=== PATIENT | male | born 1950 | race Caucasian/White ===

== ENCOUNTER 2024-03-13 18:58 | Emergency (ER) | payer MEDICARE, SELFPAY ==
[2024-03-13 19:00] VITALS: BP 194/94
[2024-03-13 19:23] VITALS: BMI 26.8
--- NOTE | 2024-03-13 20:36 | ED.GENMED ---
History of Present Illness
General
Chief Complaint: Musculo-Skeletal Complaint
Source: patient
Exam Limitations: none
Time Seen by Provider: 03/13/24 19:26
Nursing documentation reviewed up to this point in time: agreed with
History of Present Illness
History of Present Illness:
73-year-old male presents Emergency Department complaining of 2 days of neck stiffness and soreness. He took Advil and could not get it to go away. He also complains of a headache.
Past History
Past History
ED Past Medical History: None
ED Past Surgical History: Orthopedic (Chronic left knee intermittent pain and swelling.)
Social History
Tobacco: Non-smoker
Living: with family
Employment: Employed
Review of Systems
Review of Systems
Allergies reviewed?: Yes
All Other Systems: Not applicable
Constitutional: Reports no symptoms
EENT: Reports no symptoms
Respiratory: Reports no symptoms
Cardiac: Reports no symptoms
ABD/GI: Reports no symptoms
: Reports no symptoms
Musculoskeletal: Reports neck pain
Skin: Reports no symptoms
Endocrine: Reports no symptoms
Hematologic/Lymphatic: Reports no symptoms
Psychiatric: Reports no symptoms
Phy Exam
Physical Exam
Physical Exam:
Physical Exam
General: no apparent distress, not acutely ill
Neck: supple. no meningeal signs. normal posterior pharynx, mild posterior soft tissue tenderness
Heart: s1/s2 regular rate and rhythm, no murmur. equal radial
pulses.
HEENT: Pupils equal round reactive to light, EOMI
Lungs: no acute respiratory distress. clear bilaterally
Abdomen: normal bowel sounds. not tender. no CVAT
Neuro: alert and oriented. no focal neurological deficits cranial nerves II through XII intact
Skin: no rash
Psychiatric: well kept. interactive and cooperative
Extremities: no edema. no calf tenderness. negative homans. good distal pulses
Course
Orders/Labs/Results
Orders:
Orders
03/13/24 19:41
CT Cervical Spine W/o Iv Contr Urgent
Comment:
Reason For Exam: lower cervical pain, no know trauma
CT Head W/o Iv Contrast Urgent
Comment:
Reason For Exam: posterior headache
03/13/24 20:35
Acetaminophen [Tylenol] 1,000 mg PO NOW STA
Vital Signs
Initial and Last Documented VS:
Initial Vital Signs
Temp Pulse Resp BP Pulse Ox
97.8 F 62 20 194/94 97
03/13/24 19:00 03/13/24 19:00 03/13/24 19:00 03/13/24 19:00 03/13/24 19:00
Last Documented Vital Signs
Temp Pulse Resp BP Pulse Ox
97.8 F 54 18 143/74 94
03/13/24 19:00 03/13/24 22:24 03/13/24 22:24 03/13/24 22:24 03/13/24 22:24
MDM/Problems Addressed
Differential Diagnosis Includes:
Intracranial tumor, neck strain
MDM/Problems Addressed:
73-year-old male with neck pain, likely musculoskeletal, headache possibly due to meningioma. No signs of intracranial emergency. Patient stable for discharge.
*Radiology
Radiology exam reviewed: radiology read reviewed (CT head shows meningioma, CT cervical spine shows degenerative changes)
*Pulse Oximetry
Patient hypoxic: no
*Critical Care Note
Total Time (30-74mins, 75-104mins- exclusive of procedures): Not Applicable
Patient Management
Social determinants of health affecting care: Living situation
Discussion with other providers: Manager Occupational (Wilder text sent to)
Escalation/DeEscalation of care consider admission/obs:
Admit not indicated
ED Attending Note
-
Portions of this chart may have been created with voice recognition software.� Occasional wrong word or��sound alike� substitutions may have occurred due to the inherent limitations of voice recognition software.
Discharge Plan
Departure
Patient Disposition: Home (Routine Discharge)
Date of Disposition: 03/13/24
Time of Disposition: 22:39
Patient with high blood pressure during this ER visit?: Yes
Condition: Good
Discharge Problem:
Acute strain of neck muscle, Meningioma
Instructions: Meningioma (DC), BLOOD PRESSURE
Prescriptions:
No Action
lisinopril 10 mg tablet
10 mg PO DAILY
ezetimibe 10 mg tablet
10 mg PO DAILY
naproxen 500 mg tablet
500 mg PO BIDPRN PRN (Reason: moderate pain)
Referrals:
Parker Adame DO [Active] - Call in 1-3 days for appt
Troy Parisi MD [Family Provider] -
Interventions
Interventions:
*Risk Screen - Suicide Last Done: 03/13/24 19:00
*General Assessment Last Done: 03/13/24 19:24
*Neglect/Abuse Screening Last Done: 03/13/24 19:00
*ED COVID-19 Vaccine History Last Done: 03/13/24 19:24
*Nursing Disposition Last Done: 03/13/24 22:52
ED-Musculoskeletal Assessment Last Done: 03/13/24 19:25
Discharge Date and Time
Discharge Date/Time: 03/13/24 22:53
Print Language: ANDORRAN
[2024-03-13] MEDS: TYLENOL 1000 MG PO (20:40)
[2024-03-13 21:30] VITALS: BP 155/86
[2024-03-13 22:24] VITALS: BP 143/74
== END 2024-03-13 22:53 | disposition home or self-care (01) ==
LOC: EMR 18:58
PROVIDERS: EMERGENCY PHYSICIAN Emergency Medicine; FAMILY PHYSICIAN Family Medicine
DX: S16.1XXA Strain of muscle, fascia and tendon at neck level, initial encounter (principal); D32.9 Benign neoplasm of meninges, unspecified; X58.XXXA Exposure to other specified factors, initial encounter
CPT/HCPCS: 99284; 70450; 72125

== ENCOUNTER → 2024-04-25 14:59 | Outpatient (REF) | payer MEDICARE, SELFPAY | LOC: PAVMRI 14:59 | PROVIDERS: ATTENDING PHYSICIAN Physician Assistant Medical; FAMILY PHYSICIAN Family Medicine | DX: D32.9 Benign neoplasm of meninges, unspecified (principal) | CPT/HCPCS: 70030; 70553; A9575 ==